=== PATIENT | female | born 1945 | race Caucasian/White ===

== ENCOUNTER → 2018-01-04 | Outpatient (CLI) | payer MEDICARE, BC ==
[~2018-01-04] MED LIST: LEVO75TA73 PO; RALO60TA12 PO
--- NOTE | 2018-01-04 11:28 | RADIOLOGY IMAGING REPORT ---
FACILITY: [facility] [place] PATIENT NAME: Iris Lanza : 1945 MR: [id number] V: [id number] EXAM DATE: ORDERING PHYSICIAN: SASHA CARRENO TECHNOLOGIST: Location: [facility] Patient: Iris Lanza : 1945 Visit/Account:[id number] Date of Sevice: 01/04/2018 2 VIEWS CHEST INDICATION: Cough for four days, fever. COMPARISON: X-ray examination chest August 14, 2014 FINDINGS: Cardiac silhouette is stable and within normal limits. There is no evidence of new infiltrate, conso lidation, effusion or pneumothorax. Bones reveal no acute osseous finding with mild spondylotic aldrich ges. IMPRESSION: 1. No evidence of acute cardiopulmonary finding Report Dictated By: Edmundo Preston MD at 01/04/2018 11:21 AM Report E-Signed By: Edmundo Preston MD at 01/04/2018 11:23 AM WSN:[id number]
== END ==
LOC: RAD 10:32
PROVIDERS: ATTEND Physician Assistant Medical
DX: R05 Cough (principal)
CPT/HCPCS: 71046